=== PATIENT | female | born 1995 | race African-American/Black ===

== ENCOUNTER 2019-01-08 21:15 | Emergency (ER) | payer SELFPAY ==
[2019-01-08] MEDS ORDERED: ONDANSETRON HCL INJ/PF 4 MG/2 ML SDV IV ONE (21:32)
[2019-01-08] MEDS ORDERED: MORPHINE SULFATE 10 MG/ML INJ IV ONE (21:32)
--- NOTE | 2019-01-08 21:35 | ER Document Report ---
ED General - General Chief Complaint: Ankle Injury Stated Complaint: ANKLE INJURY Time Seen by Provider: 01/08/19 21:22 - [facility] Notes: Patient is a 23-year-old female who presents to the emergency department for evaluation after a left ankle injury. She was rollerskating for the first time. She fell and went to get up, someone fell on her left lower extremity. She really cannot elaborate for me which side. She denies any pain anywhere besides her ankle. She did not hit her head. No neck or back pain. She is never had a broken bone, has never seen an orthopedist in the past. - Related Data Allergies/Adverse Reactions: No Known Allergies Allergy (Unverified 01/08/19 21:21) Past Medical History - General Information source: Patient - Social History Smoking Status: Never Smoker Frequency of alcohol use: Rare Family History: Reviewed & Not Pertinent - Medical History Medical History: Negative Review of Systems - Review of Systems Constitutional: No symptoms reported EENT: No symptoms reported Cardiovascular: No symptoms reported Respiratory: No symptoms reported Gastrointestinal: No symptoms reported Genitourinary: No symptoms reported Musculoskeletal: No symptoms reported Skin: No symptoms reported Neurological/Psychological: No symptoms reported Physical Exam - Vital signs Vitals: Resp BP Pulse Ox 17 131/93 H 100 01/08/19 21:21 01/08/19 21:21 01/08/19 21:21 Notes: Vital signs per EMS reveal a blood pressure 108/71, heart rate 95, O2 sats 97% on room air, respiratory rate of 16, nonlabored - Notes Notes: Vital signs reviewed, please refer to chart. This is a 23-year-old female who appears her stated age in a moderate amount of distress. She is tearful. Head is normocephalic, atraumatic. Pupils equal round, reactive to light. Neck is supple without meningismus. Heart is regular rate and rhythm. Lungs are clear to auscultation bilaterally. Abdomen is soft, nontender, normoactive bowel sounds throughout. Examination of the left lower extremity yields obvious deformity at the ankle. She is tenderness palpation of the posterior aspect of both the lateral medial malleoli. No fifth metatarsal head tenderness. No fibular head tenderness. Skin is intact. Neurovascularly intact to left lower extremity. Course - Re-evaluation Re-evalutation: 01/08/19 21:35 Patient presents emergency department for evaluation. She was administered fentanyl in route with little relief. We will give her morphine. She has obvious fracture bilateral malleoli. Awaiting radiology read. Based on radiology read 01/08/19 22:57 , Patient's level of discomfort, no apparent deformity, decision was made to proceed with reduction. Conscious sedation was used. The procedure was explained in great detail, questions were sought and answered, consent was signed and placed on the chart. Procedure performed without difficulty, please see attached procedure note. Postprocedural reduction films ordered, pending at this time. 01/09/19 00:43 Postreduction films show significantly improved alignment. I was concerned about outpatient follow-up in this patient, as I do not have orthopedist transmission and protection engineer this evening. I spoke with Marko Del Toro. I was put in touch with orthopedist on-call, Dr. Unruly Webster. He is able to evaluate images. He believes that outpatient follow-up is appropriate at this time. Patient was given crutches. We will send her home with 6 North to go, as well as a prescription. She is instructed to take [id number] ibuprofen as needed for moderate pain. She is given contact information for Dr. Webster. She is to return to the emergency department with worsening or new concerning symptoms of any sort. 01/09/19 01:20 Patient given a slip for 1 week off of work. She currently works in a daycare. - Vital Signs Vital signs: Temp Pulse Resp BP Pulse Ox 98.2 F 105 H 21 H 124/76 100 01/08/19 21:42 01/08/19 23:08 01/08/19 23:10 01/08/19 23:10 01/08/19 23:10 - Diagnostic Test Radiology reviewed: Image reviewed, Reports reviewed Radiology results interpreted by me: 01/09/19 00:44 Ankle X-Ray 01/08/19 00:00 IMPRESSION: Comminuted fracture involving the distal fibular diaphysis with lateral displacement of the distal fracture fragments. Transversely oriented fracture of the medial malleolus. Lateral subluxation of the tibiotalar joint. Possible posterior malleolus fracture. copyright 2010 [employer]- All Rights Reserved Ankle X-Ray 01/08/19 22:56 IMPRESSION: Ankle in post reduction and casting as detailed above. copyright 2010 [employer]- All Rights Reserved Procedures - Joint Reduction/Fracture Care Left Ankle Time completed: 22:48 Consent obtained: Yes Conscious sedation: Yes Pre-procedure NV exam: Yes Fracture: Closed Manipulation comment: Easily manipulated to near anatomic alignment Post-procedure NV exam: Yes - Neurovascularly intact Complications: No Notes: 01/08/19 23:00 Procedure was explained in great detail. Questions were sought and answered. Consent was signed and placed on the chart. The patient was medicated with propofol, a total of 80 mg, given in 2 doses of 60 and 20 respectively. Once adequate analgesia was achieved, traction and varus stress were placed on the ankle to reduce. Once near anatomical alignment was achieved grossly, neurovascular status was assessed. Good capillary refill, dorsalis pedis pulse 2+. Heavy padding was placed, then OCL was placed for posterior and sugar tong. Again neurovascularly intact following splint placement. Awaiting postreduction films. Discharge - Discharge Clinical Impression: Closed left trimalleolar fracture Qualifiers: Encounter type: initial encounter Qualified Code(s): S82.852A - Displaced trimalleolar fracture of left lower leg, initial encounter for closed fracture Condition: Stable Disposition: HOME, SELF-CARE Instructions: Use of Crutches ([facility]), Fractured Ankle (Bimalleolar) ([facility]), Temporary Splint ([facility]) Additional Instructions: You have a trimalleolar fracture of your ankle. This will require further orthopedic follow-up. Use crutches for ambulation, absolutely no weightbearing. Take North as needed for severe pain, ibuprofen for moderate pain. Do not get splint wet, and keep it in place until follow-up with orthopedics. You can follow-up with Dr. Unruly Webster, of [facility]. Call his office at on Thursday morning for a follow-up appointment this week. If you develop increased pain, significant welling, numbness, or any other new or concerning symptoms, return immediately to the emergency department for reevaluation. Prescriptions: Hydrocodone/Acetaminophen [North 5-325 mg Tablet] 1 tab PO Q6H PRN #10 tablet PRN Reason: For Pain Scale 4-5 Forms: Return to Work
--- NOTE | 2019-01-08 21:44 | RADIOLOGY REPORT (SQ) ---
EXAM DESCRIPTION: XR ANKLE 3 OR MORE VIEWS COMPLETED DATE/TME: 01/08/2019 00:00 CLINICAL HISTORY: 23 years, Female, PAIN, INJURY COMPARISON: None. NUMBER OF VIEWS: Three TECHNIQUE: Frontal, oblique, and lateral radiographs were obtained. LIMITATIONS: None. FINDINGS: Visualized is a comminuted fracture involving the distal fibular diaphysis with lateral displacement of the distal fracture fragments. There is a concomitant transversely oriented fracture through the medial malleolus. In addition, there is lateral subluxation of the talus relative to the tibia. There is also likely deformity involving the posterior malleolus. Focal sclerotic area located within the posterior aspect of the calcaneus possibly corresponds to a benign bone island. IMPRESSION: Comminuted fracture involving the distal fibular diaphysis with lateral displacement of the distal fracture fragments. Transversely oriented fracture of the medial malleolus. Lateral subluxation of the tibiotalar joint. Possible posterior malleolus fracture. copyright 2010 [employer]- All Rights Reserved
[2019-01-08] MEDS ORDERED: PROPOFOL INJ 200 MG/20 ML VIAL IV ONE ×2 (22:10→22:23)
--- NOTE | 2019-01-08 23:26 | RADIOLOGY REPORT (SQ) ---
EXAM DESCRIPTION: XR ANKLE 2 VIEWS COMPLETED DATE/TME: 01/08/2019 22:56 CLINICAL HISTORY: 23 years, Female, post reduction COMPARISON: 01/08/2019. NUMBER OF VIEWS: 2 TECHNIQUE: Two views of the LEFT ankle were obtained in post reduction and casting in AP and crosstable lateral projection. LIMITATIONS: None. FINDINGS: Overlying cast material obscures fine osseous detail. Frontal appearance of the ankle reveals gross anatomic alignment of the medial malleolus fracture. The tibiotalar joint space appears to be grossly aligned. Again identified is stable appearance of a multipart comminuted fracture of the distal fibular diaphysis. IMPRESSION: Ankle in post reduction and casting as detailed above. copyright 2010 [employer]- All Rights Reserved
[2019-01-09] MEDS ORDERED: HYDROCODONE/ACETAMINOPHEN 5-325 MG (6 TAB/ER DISP) PO PRN (00:17)
[2019-01-09 01:31] VITALS: BP 122/69
== END 2019-01-09 01:31 | disposition home or self-care (01) ==
LOC: ER 21:15
DX: S82.852A Displaced trimalleolar fracture of left lower leg, initial encounter for closed fracture (principal); W50.0XXA Accidental hit or strike by another person, initial encounter; Y93.51 Activity, roller skating (inline) and skateboarding
CPT/HCPCS: 99283; 99152; 96374; 96375; 73600; 73610; 27788; J2270; J2405; J2704